=== PATIENT | female | born 1930 | race Asian ===

== ENCOUNTER 2017-09-25 10:59 | Inpatient (IN) | payer OTHER, MEDICAID ==
[2017-09-25] MEDS ORDERED: OSELTAMIVIR PHOSPHATE 75 MG CAP PO ONE (11:12)
[2017-09-25] MEDS ORDERED: IPRATROPIUM/ALBUTEROL 3 ML DEYVIAL IH ONE (11:14)
[2017-09-25] MEDS ORDERED: methylPREDNISolone SOD SUCC 125 MG/2 ML VIAL IVP ONE (11:17)
--- NOTE | 2017-09-25 11:19 | EDPHY ---
H & P Stated Complaint: SOB, cough worsening x 1 week - Personal History Tetanus Vaccine Date: 2012 - Medical/Surgical History Hx Asthma: Yes Hx Chronic Respiratory Disease: No Hx Diabetes: No Hx Cardiac Disease: No Hx Renal Disease: No Hx Cirrhosis: No Hx Alcoholism: No Hx HIV/AIDS: No Hx Splenectomy or Spleen Trauma: No Other PMH: ASTHMA - Social History Smoking Status: Never smoked Time Seen by Provider: 09/25/17 11:10 HPI/ROS: CHIEF COMPLAINT: Influenza HISTORY OF PRESENT ILLNESS: 86-year-old female with history of asthma, arrives via private vehicle after she went see her PCP this morning for complaints of flu-like symptoms since yesterday, positive influenza a test, was noted to be hypoxemic in the low 80s recommended hospital evaluation and likely admission. Language barrier is pleasant. Family members assisting interpretation. No influenza vaccination this season. Patient denies: Chest pain, back pain, syncope, near syncope, urinary abnormality, abdominal pain, headache, nuchal rigidity, pharyngitis symptoms, rash PRIMARY CARE PROVIDER: Dr. Almas Beth REVIEW OF SYSTEMS: A ten point review of systems was performed and is negative with the exception of the items mentioned in the HPI PAST MEDICAL & SURGICAL HISTORY: No influenza vaccination. Asthma. SOCIAL HISTORY: Nonsmoker PHYSICAL EXAM (Prior to examination, patient consented to physical exam, hands were washed and my usual and customary physical exam procedures followed) 1) GENERAL: Well-developed, well-nourished, alert and oriented. Appears nontoxic 2) HEAD: Normocephalic, atraumatic 3) HEENT: Pupils equal, round, reactive to light bilaterally. Sclera anicteric. Nasopharynx, oropharynx, clear, no lesions. No tonsillar enlargement or exudate Ears bilaterally with normal tympanic membranes. 4) NECK: Full range of motion, no meningeal signs. 5) LUNGS: Bilateral rhonchi with retractions noted. 6) HEART: Regular rate and rhythm, no murmur, no heave, no gallop. 7) ABDOMEN: No guarding, no rebound, no focal tenderness, negative McBurney's, negative Ruth's, negative Rovsing's, negative peritoneal sign, 8) MUSCULOSKELETAL: Moving all extremities, no focal areas of tenderness, no obvious trauma. No peripheral edema or discoloration. 9) BACK: No CVA tenderness, no midline vertebral tenderness, no fluctuance, no step-off, no obvious trauma, no visual or palpable abnormality. 10) SKIN: No rash, no petechiae. 11) Psychiatric: Patient is oriented X 3, there is no agitation. DIFFERENTIAL DIAGNOSIS: In no particular include but limited to influenza, pneumonia, pulmonary embolus (Maricarmen Dawn) Constitutional: Initial Vital Signs Temperature (C) 36.7 C 09/25/17 11:06 Heart Rate 73 09/25/17 11:06 Respiratory Rate 20 09/25/17 11:06 Blood Pressure 138/90 H 09/25/17 11:06 O2 Sat (%) 77 L 09/25/17 11:06 O2 Delivery Mode Nasal Cannula O2 (L/minute) 4 Allergies/Adverse Reactions: No Allergies [NKDA] Allergy (Verified 08/31/14 14:58) Home Medications: Medication Instructions Recorded Acetaminophen [Tylenol ES 500 mg 1,000 mg PO DAILY 09/25/17 (*)] Albuterol [Proventil Inhaler HFA 1 - 2 puffs IH Q4H PRN 09/25/17 (*)] Medical Decision Making - Diagnostics Imaging Results: Imaging Impressions Chest X-Ray 09/25/17 11:12 Impression: 1. No pneumonia or effusion. 2. Cardiomegaly and chronic airways disease and bronchiectasis are unchanged. Images reviewed by myself (Maricarmen Dawn) ED Course/Re-evaluation: I discussed this case with Josse Dawn. I took a call from the outpatient physician. This patient has positive for flu A. She is an 86-year-old [place] woman with grandson translating. She has very significant hypoxemia in the mid 70s. She is also new to altitude. We will perform laboratory studies including a septic workup and procalcitonin level. We will admit her to the hospital (Troy Cuello) 11:20 a.m.: Discussed case with secondary supervising physician Dr. Troy Cuello who also evaluated patient. Patient is positive Invanz a, hypoxemic. Plan will be diagnostic studies and plan for admission 11:39 a.m.: Dr. Troy Cuello spoke with hospitalist, admit to Dr. Chaparro 12:50 p.m.: Re-evaluation, lungs are more clear after DuoNeb treatment. (Maricarmen Dawn) - Data Points Laboratory Results: Laboratory Results 09/25/17 11:25 09/25/17 11:25 09/25/17 09/25/17 09/25/17 11:25 11:25 11:25 WBC 8.02 10^3/uL 10^3/uL (3.80-9.50) RBC 4.66 10^6/uL 10^6/uL (4.18-5.33) Hgb 15.0 g/dL g/dL (12.6-16.3) Hct 43.3 % % (38.0-47.0) MCV 92.9 fL fL (81.5-99.8) MCH 32.2 pg pg (27.9-34.1) MCHC 34.6 g/dL g/dL (32.4-36.7) RDW 12.6 % % (11.5-15.2) Plt Count 204 10^3/uL 10^3/uL (150-400) MPV 9.4 fL fL (8.7-11.7) Neut % (Auto) 77.4 % H % (39.3-74.2) Lymph % (Auto) 9.1 % L % (15.0-45.0) Campbell % (Auto) 12.0 % % (4.5-13.0) Eos % (Auto) 0.6 % % (0.6-7.6) Baso % (Auto) 0.4 % % (0.3-1.7) Nucleat RBC Rel Count 0.0 % % (0.0-0.2) Absolute Neuts (auto) 6.21 10^3/uL 10^3/uL (1.70-6.50) Absolute Lymphs (auto) 0.73 10^3/uL L 10^3/uL (1.00-3.00) Absolute Monos (auto) 0.96 10^3/uL H 10^3/uL (0.30-0.80) Absolute Eos (auto) 0.05 10^3/uL 10^3/uL (0.03-0.40) Absolute Basos (auto) 0.03 10^3/uL 10^3/uL (0.02-0.10) Absolute Nucleated RBC 0.00 10^3/uL 10^3/uL (0-0.01) Immature Gran % 0.5 % % (0.0-1.1) Immature Gran # 0.04 10^3/uL 10^3/uL (0.00-0.10) PT 13.4 SEC SEC (12.0-15.0) INR 1.00 (0.83-1.16) APTT 30.3 SEC SEC (23.0-38.0) VBG Lactic Acid Sodium 136 mEq/L mEq/L (135-145) Potassium 4.2 mEq/L mEq/L (3.5-5.2) Chloride 95 mEq/L L mEq/L (97-110) Carbon Dioxide 30 mEq/l mEq/l (22-31) Anion Gap 11 mEq/L mEq/L (8-16) BUN 15 mg/dL mg/dL (7-23) Creatinine 0.8 mg/dL mg/dL (0.6-1.0) Estimated GFR > 60 Glucose 107 mg/dL H mg/dL (70-100) Calcium 8.9 mg/dL mg/dL (8.5-10.4) Total Bilirubin 1.5 mg/dL H mg/dL (0.1-1.4) Procalcitonin 0.09 ng/mL ng/mL (0.02-0.10) 09/25/17 11:25 WBC RBC Hgb Hct MCV MCH MCHC RDW Plt Count MPV Neut % (Auto) Lymph % (Auto) Campbell % (Auto) Eos % (Auto) Baso % (Auto) Nucleat RBC Rel Count Absolute Neuts (auto) Absolute Lymphs (auto) Absolute Monos (auto) Absolute Eos (auto) Absolute Basos (auto) Absolute Nucleated RBC Immature Gran % Immature Gran # PT INR APTT VBG Lactic Acid 1.8 mmol/L mmol/L (0.7-2.1) Sodium Potassium Chloride Carbon Dioxide Anion Gap BUN Creatinine Estimated GFR Glucose Calcium Total Bilirubin Procalcitonin Medications Given: Discontinued Medications Albuterol/Ipratropium (Duoneb) 3 ml IH EDNOW ONE Stop: 09/25/17 11:15 Last Admin: 09/25/17 11:35 Dose: 3 ml Methylprednisolone Sodium Succinate (Solu-Medrol) 125 mg IVP EDNOW ONE Stop: 09/25/17 11:18 Last Admin: 09/25/17 11:35 Dose: 125 mg Oseltamivir Phosphate (Tamiflu Oral Suspension) 75 mg PO EDNOW ONE Stop: 09/25/17 11:46 Last Admin: 09/25/17 12:03 Dose: 75 mg
--- NOTE | 2017-09-25 11:32 | ASMTCMCOM ---
CM Note CM Note Notes: Patient sent to ED from PCP office - positive for Influenza A with hypoxemia. She lives with her son and grandchildren. She is accompanied by her grandchildren who say that she is normally independent. She has an oxygen "machine" at home but they have never seen her use it. Case Management will follow for any discharge needs. Date Signed: 09/25/2017 11:32 AM Electronically Signed By:Berenice Durand RN
[2017-09-25 11:38] LABS: PLATELET COUNT 204 10^3/uL (150-400)
[2017-09-25] MEDS ORDERED: OSELTAMIVIR 6 MG/ML UDSYR PO ONE (11:45)
[2017-09-25 12:05] LABS: PROTIME(PATIENT) 13.4 SEC (12.0-15.0)
[2017-09-25] MEDS ORDERED: ACETAMINOPHEN 325 MG TAB PO PRN (12:54)
[2017-09-25] MEDS ORDERED: ONDANSETRON 4 MG/2 ML VIAL IVP PRN (12:54)
[2017-09-25] MEDS ORDERED: ONDANSETRON DISINTEGRATING 4 MG TAB PO PRN (12:54)
[2017-09-25] MEDS: NS 1,000 ML IV SCH (14:39)
--- NOTE | 2017-09-25 16:48 | PDGENHP ---
History and Physical History and Physical: CC: Worsening shortness of breath HISTORY: This patient developed myalgias arthralgias nausea abdominal ache cough and runny nose last week. Her symptoms persisted though were gradually getting better. This fever initially that was getting better. She was seen a couple days ago at primary care office in [place] and tested positive for influenza A. Over the last 2 days the patient has developed worsening shortness of breath along with some dry cough but no chest ache and she has not had worsening fevers. She is brought by her family into the emergency room with this story. There is no pleuritic pain in the chest no anginal-type symptom no orthopnea no leg swelling or pain. The patient did not have a flu shot this year. She does have a history of some type of airway disease lungs for which she uses an inhaler but the family is not clear with the diagnosis is. She has never been a smoker and there is no family history of lung disease. She has no history of heart disease. She has no history of thromboembolic disease. Per her family she has been eating and drinking reasonably well today, is weaker than usual and having difficulty doing transfers but was able to ambulate independently today. She is perhaps slightly disoriented today they think. They are not aware of any other specific symptoms that she has had. ROS: At the moment she complains mostly of dyspnea and some mild abdominal ache without nausea. 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 She lives with her son here [place] and is accompanied by her son and 2 other relatives. She has never been a smoker never used alcohol I did discuss will with the family in detail the question of resuscitation status. The patient is really not able at this point to comprehend the question full enough to make any understanding or decisions. The family at this point feels that she would probably want full cor attempts and they request that we have full cor orders on the chart at this time MEDICATIONS: Albuterol inhaler as needed PHYSICAL EXAMINATION: Vital Signs: Respiratory rate in the 20s on 5 L of oxygen, pulse blood pressure and temperature is also normal so far Associate Consulting Engineer: Sinus rhythm in the ER Examination: General: alert, reasonably relaxed this time although sounds like he is in more respiratory distress in the ER; she has some mild difficulty understanding questions another part of conversation per her family which sounds like is her baseline Skin: warm, dry, good color, no rash HEENT: normal Neck: no mass or jvd Resps: Mildly labored Lungs: Prolonged expiratory phase of breathing with diffuse expiratory wheeze Heart: regular, no murmur Abdomen: soft, nondistended, nontender, +BS, no mass Upper Extremities: normal Lower Extremities: no edema, warm No Bleeding or bruising Neurologic: normal speech/language, normal equipment operator warehouse, no focal weakness IV site: looks normal LABORATORY DATA: Unremarkable CBC Chemistries only remarkable for minimal elevation of bilirubin which has been seen on past blood test for her with 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 similar The procalcitonin is normal The influenza test done at her primary care physician 2 days ago positive for influenza A RADIOLOGY STUDIES: Chest x-ray done in the ER I reviewed the images, there is some evidence of probable chronic airway disease and what appears to be possibly to be some mild interstitial abnormalities, but no alveolar infiltrate and no effusion and no heart failure ASSESSMENT: -acute hypoxemic respiratory failure -acute influenza a infection -exacerbation of chronic airways disease caused by the influenza; unclear if this is asthma or chronic bronchitis but she has no smoking history -generalized acute weakness due to the above, with gait instability and increased fall risk with fracture risk -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 She certainly needs aggressive treatment for her airways disease as well I did review with the family the finding of high-grade dysplasia on her biopsy of the stomach ulcer years ago and the recommendation had been made at that time for surveillance endoscopy. At this point that he will need to make any decisions but they should talk with the patient as she recovers from this illness and determine between them whether they think they want to engage in surveillance endoscopy or not. Given her age and overall level of function it is reasonable to make a choice to avoid surveillance endoscopies but they understand that there is a possibility that the patient could developed carcinoma. Did not recall it anything about this detail from the 2014 admission PLANS: -inpatient admission to hospital is indicated given the severity of illness the the he which will likely be slowed resolved -Tamiflu was started at reduced dosing for her kidney clearance -scheduled bronchodilators -corticosteroid for her reactive airway disease -fall risk precautions and DVT prophylaxis -physical occupational therapy -full cor per the family wishes -the family as above is advised about the history of before high-grade dysplasia on gastric biopsy and that they should consider over time with a she would wish to have surveillance endoscopy or not, they did not recall this from her 2014 admission I have reviewed the patient's case in detail with Josse Dawn of the ER I have reviewed the patient's past medical records as part of this assessment, including previous hospital admission records and endoscopy reports pathology reports
[2017-09-25] MEDS: IPRATROPIUM/ALBUTEROL 3 ML DEYVIAL IH SCH ×2 (16:58→20:32)
[2017-09-25] MEDS ORDERED: ALBUTEROL 60 PUFFS/8 GM MDI IH PRN (17:27)
[2017-09-25] MEDS: OSELTAMIVIR 6 MG/ML UDSYR PO SCH (17:35)
--- NOTE | 2017-09-25 17:52 | PDMN ---
Medical Necessity Medical necessity: C/M review: est. > 2 MN LOS for eval and TX of acute and persistent - hypoxemic respiratory failure, influenza infection, exacerbation of chronic airways disease, generalized weakness requiring ongoing IV fluids, Duonebs, oral Tamilfu, oral steroid, pulse oximetry, supplemental O2, acute inpt PT/OT, comorbid history of gastric ulcerations in 2013 with high grade dysplasia, duodenal diverticulum, chronic airway disease of the lungs of uncertain nature, hypertension per H/P.
[2017-09-26] MEDS: NS 1,000 ML IV SCH ×2 (03:54→17:33)
[2017-09-26] MEDS: IPRATROPIUM/ALBUTEROL 3 ML DEYVIAL IH SCH ×4 (06:25→21:40)
--- NOTE | 2017-09-26 09:51 | HOSPPROG ---
Hospitalist Progress Note Assessment/Plan: The patient is an 86-year-old female who developed arthralgias, nausea, abdominal pain, and cough. She was seen a few days ago by her primary care doctor and tested positive for influenza a. She started to have worsening shortness of breath. The family brought her in for further evaluation. Today is my 1st encounter with the patient. Chart reviewed. * acute influenza a infection -on Tamiflu (on a lower dose due to kidney function) -continues to complain of body aches * acute hypoxemic respiratory failure -she is on 1 L of oxygen and oxygenating well -chest x-ray shows no no acute abnormalities or infiltrate or effusion. There is some evidence of probable chronic airway disease -on steroids and bronchodilators * generalized acute weakness with gait instability -physical therapy and occupational therapy to work with her * history of high-grade dysplasia noted upon biopsy of a gastric ulcer in 2013 -previous physician spoke with the family to determine if they would want to engage in surveillance endoscopy or not * code status full * plan. The patient will require another midnight stay. She has very poor lung sounds with rhonchi and very tight sounding. She will need treatment with nebulizers. Subjective: Patient is complaining of some body aches but is wondering when she gets to go home Objective: Vital Signs Temp Pulse Resp BP Pulse Ox 37.1 C 72 16 109/58 L 96 09/26/17 07:45 09/26/17 07:45 09/26/17 07:45 09/26/17 07:45 09/26/17 07:45 Laboratory Results 09/26/17 05:00 09/25/17 09/26/17 09/27/17 05:59 05:59 05:59 Intake Total 1090 Balance 1090 PT 13.4 SEC (12.0-15.0) 09/25/17 11:25 INR 1.00 (0.83-1.16) 09/25/17 11:25 - Physical Exam Constitutional: not in pain Eyes: PERRL Ears, Nose, Mouth, Throat: hearing normal Cardiovascular: regular rate and rhythym Respiratory: no respiratory distress, rhonchi, other (Very tight at the base) Gastrointestinal: normoactive bowel sounds Skin: warm Musculoskeletal: generalized weakness Psychiatric: interacting appropriately ICD10 Worksheet Patient Problems: Problems Problem Status Onset Gastric outflow obstruction Acute Nausea Acute
[2017-09-26] MEDS: predniSONE 20 MG TAB PO SCH (09:54)
[2017-09-26] MEDS: ENOXAPARIN 40 MG/0.4 ML SYR SC SCH (09:54)
[2017-09-26] MEDS: OSELTAMIVIR 6 MG/ML UDSYR PO SCH ×2 (09:54→19:40)
[2017-09-27] MEDS: IPRATROPIUM/ALBUTEROL 3 ML DEYVIAL IH SCH ×4 (06:07→20:37)
[2017-09-27] MEDS: predniSONE 20 MG TAB PO SCH (08:59)
[2017-09-27] MEDS: OSELTAMIVIR 6 MG/ML UDSYR PO SCH ×2 (08:59→17:31)
[2017-09-27] MEDS: ENOXAPARIN 40 MG/0.4 ML SYR SC SCH (08:59)
--- NOTE | 2017-09-27 10:59 | HOSPPROG ---
Hospitalist Progress Note Assessment/Plan: The patient is an 86-year-old female who developed arthralgias, nausea, abdominal pain, and cough. She was seen a few days ago by her primary care doctor and tested positive for influenza a. She started to have worsening shortness of breath. The family brought her in for further evaluation. * acute influenza a infection -on Tamiflu (on a lower dose due to kidney function) * acute hypoxemic respiratory failure -she is on 1 L of oxygen and oxygenating well -chest x-ray shows no no acute abnormalities or infiltrate or effusion. There is some evidence of probable chronic airway disease -on steroids and bronchodilators -lung sounds are a bit worse with increased wheezing. Spoke to her granddaughter's her at the bedside the patient also has underlying asthma * generalized acute weakness with gait instability -physical therapy and occupational therapy to work with her * history of high-grade dysplasia noted upon biopsy of a gastric ulcer in 2013 -previous physician spoke with the family to determine if they would want to engage in surveillance endoscopy or not * code status full * plan. Will get a chest x-ray today for further evaluation. Her lung sounds sound worse. Will get a chest x-ray today for follow-up Subjective: Per the family members the pay their grandmother is feeling better today. She is less weak and was able to ambulate in the hallway Objective: Vital Signs Temp Pulse Resp BP Pulse Ox 37.0 C 69 16 124/59 H 96 09/27/17 07:16 09/27/17 07:16 09/27/17 07:16 09/27/17 07:16 09/27/17 07:16 Laboratory Results 09/26/17 05:00 09/26/17 09/27/17 09/28/17 05:59 05:59 05:59 Intake Total 1090 900 Balance 1090 900 PT 13.4 SEC (12.0-15.0) 09/25/17 11:25 INR 1.00 (0.83-1.16) 09/25/17 11:25 - Physical Exam Constitutional: no apparent distress, not in pain Ears, Nose, Mouth, Throat: ears appear normal Cardiovascular: no murmur, rub, or gallop Respiratory: no respiratory distress, expiratory wheeze, rhonchi Gastrointestinal: normoactive bowel sounds, soft, non-tender abdomen Skin: warm Musculoskeletal: generalized weakness Psychiatric: interacting appropriately, not anxious ICD10 Worksheet Patient Problems: Problems Problem Status Onset Gastric outflow obstruction Acute Nausea Acute
[2017-09-28] MEDS: IPRATROPIUM/ALBUTEROL 3 ML DEYVIAL IH SCH ×2 (06:15→11:12)
[2017-09-28] MEDS: OSELTAMIVIR 6 MG/ML UDSYR PO SCH (09:03)
[2017-09-28] MEDS: predniSONE 20 MG TAB PO SCH (09:03)
[2017-09-28] MEDS: ENOXAPARIN 40 MG/0.4 ML SYR SC SCH (09:03)
[2017-09-28 10:59] VITALS: BP 133/67; TEMP 98.6
--- NOTE | 2017-09-28 14:13 | HOSPPROG ---
Hospitalist Progress Note Assessment/Plan: The patient is an 86-year-old female who developed arthralgias, nausea, abdominal pain, and cough. She was seen a few days ago by her primary care doctor and tested positive for influenza a. She started to have worsening shortness of breath. The family brought her in for further evaluation. * acute influenza a infection -on Tamiflu (on a lower dose due to kidney function) * acute hypoxemic respiratory failure -she is on 1 L of oxygen and oxygenating well -chest x-ray shows no no acute abnormalities or infiltrate or effusion. Repeat chest x-ray shows nothing acute -on steroids and bronchodilators -continues to require 1 L of oxygen, will discharge her home on this * generalized acute weakness with gait instability -physical therapy and occupational therapy to work with her * history of high-grade dysplasia noted upon biopsy of a gastric ulcer in 2013 -previous physician spoke with the family to determine if they would want to engage in surveillance endoscopy or not * code status full * plan. Will discharge her home today. I suspect she will get better in her own home environment. She is unable to sleep here due to being uncomfortable in the bed. She has many supportive children her willing to keep a close eye on her. Will order home O2 and continue her Tamiflu Subjective: patient is feeling better and wants to go home Objective: Vital Signs Temp Pulse Resp BP Pulse Ox 37.0 C 73 18 133/67 H 97 09/28/17 10:58 09/28/17 10:58 09/28/17 10:58 09/28/17 10:58 09/28/17 10:58 Laboratory Results 09/28/17 04:49 09/27/17 09/28/17 09/29/17 05:59 05:59 05:59 Intake Total 900 Balance 900 PT 13.4 SEC (12.0-15.0) 09/25/17 11:25 INR 1.00 (0.83-1.16) 09/25/17 11:25 - Physical Exam Constitutional: not in pain Eyes: PERRL Ears, Nose, Mouth, Throat: hearing normal Cardiovascular: regular rate and rhythym Respiratory: no respiratory distress, expiratory wheeze, rhonchi (scattered, bit less than yesterday) Skin: warm Musculoskeletal: generalized weakness Neurologic: AAOx3 Psychiatric: interacting appropriately ICD10 Worksheet Patient Problems: Problems Problem Status Onset Gastric outflow obstruction Acute Nausea Acute
--- NOTE | 2017-09-28 14:15 | PDHOMEO2F ---
Home Oxygen Face to Face Home Orders: I certify that a physician or a nurse practitioner or physician's bilingual sales assistant has had a [id number] encounter with this patient on the date of this order due to the diagnosis listed, which relates to the primary reason the patient requires home oxygen. Alternative treatments have been tried, or considered, and deemed ineffective. It is anticipated that supplemental oxygen will result in improvement with treatment. Home oxygen qualifying diagnosis: influenza Home oxygen secondary diagnosis: asthma SpO2 on room air (%): 84 Frequency of home oxygen needed: continuous Home oxygen liters per minute: 1 Home oxygen delivery device: nasal cannula Concentrator: Yes E-tanks for mobility and back up: Yes If ordering portable O2, is the patient mobile in the home?: Yes I certify that, based on these findings, the home oxygen is medically necessary for this patient for the following length of time. Length of time home oxygen needed: 99 years
[2017-09-28 14:44] VITALS: PULSE 64; RESP 24; O2SAT 93
[2017-09-28] MEDS ORDERED: PNEUMOC 13-VAL CONJ-DIP CRM/PF 0.5 ML SYR IM ONE (15:53)
[2017-09-28] MEDS ORDERED: FLU VACC QS 2017-18 (3YR+)/PF 0.5 ML SYR (FLUARIX QUAD) IM ONE (15:53)
--- NOTE | 2017-09-28 21:19 | GDS ---
[f rep st] DISCHARGE SUMMARY DISCHARGE DIAGNOSES: 1. Influenza A. 2. Acute hypoxemic respiratory with underlying asthma. 3. Generalized acute weakness and gait instability. 4. 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 HISTORY OF PRESENT ILLNESS: Briefly, the patient is an 86-year-old female who developed arthralgia, nausea, abdominal pain, cough. She was seen by her primary care and tested for influenza A. She sta rted having worsening of shortness of breath. The family brought her in here for further evaluation. She had a chest x-ray performed that showed no acute abnormalities, infiltrate, or effusion. I angel pect her symptoms have worsened due to underlying asthma. She has not been sleeping well in the hosp ital. She has a very supportive family who will take care of her. She will be discharged home, and further follow up with her primary care provider. HOSPITAL COURSE: 1. Acute influenza A infection. She is on Tamiflu. She will receive 3 more doses. Her arthralgia, nausea, and abdominal pain have all resolved. She continues to have a cough. 2. Acute hypoxemic respiratory failure. She is on steroids. Will wean these off. She will require oxygen at home. This has been ordered. 3. Generalized acute weakness and gait instability. Physical therapy and occupational therapy have worked with her. The family has declined for home care to evaluate her. 4. 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 The previous doctor spok e with the family if they would want to engage any type of surveillance, endoscopy or not. I have al so reviewed that with the family today and yesterday. They will further discuss with her primary car e provider. DISCHARGE CONDITION: Stable. Blood pressure is 133/67, O2 sats on 1 L 97%, respiratory rate is 18, pulse is 73, temperature is 37 degrees Celsius. MEDICATIONS AT DISCHARGE: Please see the EMR. DISCHARGE INSTRUCTIONS: 1. To follow up with her primary care provider and get a repeat chest x-ray. 2. If she develops fever, chills, chest pain, shortness of breath, return to the ER. Greater than 30 minutes discharging and coordinating care. /[id number]/MODL
== END 2017-09-28 16:13 | disposition home or self-care (01) | DRG 193 ==
LOC: OBSVTOIN 12:54 → F3E 14:16
PROVIDERS: ADMIT Internal Medicine; ATTEND Internal Medicine
DX: J10.1 Influenza due to other identified influenza virus with other respiratory manifestations (principal); J96.01 Acute respiratory failure with hypoxia; J45.909 Unspecified asthma, uncomplicated; R53.1 Weakness; Z23 Encounter for immunization
CPT/HCPCS: 97161-GP; G0008; G0009; G8978-GP-CJ; G8979-GP-CI; J1650; J2930; J7512

== ENCOUNTER → 2017-10-09 | Outpatient (CLI) | payer OTHER, MEDICAID | LOC: CIMAGING 15:33 | PROVIDERS: ATTEND Family Medicine | DX: J18.1 Lobar pneumonia, unspecified organism (principal); R91.8 Other nonspecific abnormal finding of lung field; I51.7 Cardiomegaly | CPT/HCPCS: 71046-PO ==

== ENCOUNTER → 2017-10-12 | Outpatient (CLI) | payer OTHER, MEDICAID ==
[~2017-10-12] MED LIST: IOPAMIDOL (ISOVUE-300) 100 ML BTL ONE
== END ==
LOC: FIMAGING 11:33
PROVIDERS: ATTEND Family Medicine
DX: I26.99 Other pulmonary embolism without acute cor pulmonale (principal); R91.1 Solitary pulmonary nodule; R91.8 Other nonspecific abnormal finding of lung field; Q40.3 Congenital malformation of stomach, unspecified
CPT/HCPCS: 71260; 74160; Q9967

== ENCOUNTER → 2017-11-27 | Outpatient (CLI) | payer OTHER, MEDICAID | LOC: CIMAGING 16:18 | PROVIDERS: ATTEND Family Medicine | DX: I50.9 Heart failure, unspecified (principal) | CPT/HCPCS: 71046-PO ==

== ENCOUNTER 2017-11-30 17:29 | Inpatient (IN) | payer OTHER, MEDICAID ==
--- NOTE | 2017-11-30 17:58 | CPEKG ---
Heart Rate: 74 RR Interval: 811 QRSD Interval: 76 QT Interval: 384 QTC Interval: 426 QRS Walton: 52 T Wave Walton: 60 EKG Severity - ABNORMAL ECG - EKG Impression: ATRIAL FIBRILLATION, V-RATE 61-98 Electronically Signed By: Troy Cuello 30-Nov-2017 21:33:54
--- NOTE | 2017-11-30 18:18 | EDPHY ---
H & P Stated Complaint: referred to ED for high BNP Time Seen by Provider: 11/30/17 18:18 - Personal History Current Tetanus/Diphtheria Vaccine: Yes Current Tetanus Diphtheria and Acellular Pertussis (TDAP): Yes Tetanus Vaccine Date: 2012 - Medical/Surgical History Hx Asthma: Yes Hx Chronic Respiratory Disease: No Hx Diabetes: No Hx Cardiac Disease: No Hx Renal Disease: No Hx Cirrhosis: No Hx Alcoholism: No Hx HIV/AIDS: No Hx Splenectomy or Spleen Trauma: No Other PMH: ASTHMA - Social History Smoking Status: Never smoked Constitutional: Initial Vital Signs Temperature (C) 36.6 C 11/30/17 17:43 Heart Rate 85 11/30/17 17:43 Respiratory Rate 20 11/30/17 17:43 Blood Pressure 147/87 H 11/30/17 17:43 O2 Sat (%) 92 11/30/17 17:43 O2 Delivery Mode Room Air O2 (L/minute) 2 Allergies/Adverse Reactions: No Allergies [NKDA] Allergy (Verified 11/30/17 17:41) Home Medications: Medication Instructions Recorded Albuterol [Proventil Inhaler HFA 1 - 2 puffs IH Q4H PRN 09/25/17 (*)] Azithromycin 250 mg PO DAILY 11/30/17 Warfarin Sodium [Coumadin 1MG (*)] 0.5 mg PO MOWEFR@1800 11/30/17 Warfarin Sodium [Coumadin 1MG (*)] 1 mg PO SUTUTHSA@1800 11/30/17 Medical Decision Making - Diagnostics Imaging Results: Imaging Impressions Chest X-Ray 11/30/17 18:39 Impression: 1. Findings consistent with congestive heart failure superimposed upon underlying airways disease. 2. Marked aortic ectasia consistent with history of arterial hypertension. ED Course/Re-evaluation: CHIEF COMPLAINT: Sent in by PCP HISTORY OF PRESENT ILLNESS: 87-year-old [facility] woman who has her granddaughter at bedside and translating. She has been having some difficulty with shortness of breath especially while laying flat. She saw her primary care doctor who thought she may have a pneumonia which she had an late September. The chest x- ray was unremarkable for pneumonia however the BNP came back over a 8000. This patient has a new diagnosis of congestive heart failure according to the granddaughter. She was sent in to have her new onset CHF diagnosed. REVIEW OF SYSTEMS: A 10 point review of systems was performed and is negative with the exception of the elements mentioned in the history of present illness. Obtained via the granddaughter PHYSICAL EXAM: HR, BP, O2 Sat, RR. Temp noted General Appearance: Alert, well hydrated, appropriate, and non-toxic appearing. Head: Atraumatic without scalp tenderness or obvious injury Eyes: Pupils equal, round, reactive to light and accommodation, EOMI, no trauma , no injection. Ears: Clear bilaterally, no perforation, normal landmarks Nose: Atraumatic, no rhinorrhea, clear. Throat: There is no erythema or exudates, no lesions, normal tonsils, mucus membranes moist. Neck: Supple, 2+ carotid upstroke, nontender, no lymphadenopathy. Respiratory: Mild respiratory distress but better on 2 and half to 3 L of oxygen. Rales at the bases with some mild end-expiratory wheezes Cardiovascular: Regular rate and rhythm, no murmurs, rubs, or gallops. Bilateral carotid, radial, dorsalis pedis, and posterior tibial pulses intact. Good capillary refill all extremities. Gastrointestinal: Abdomen is soft, nontender, non-distended, no masses, no rebound, no guarding, no peritoneal signs. Musculoskeletal: Normal active ROM of all extremities, atraumatic. Neurological: Alert, appropriate, and interactive. The patient has normal DTRs and non-focal cranial nerves, motor, sensory, and cerebellar exam. Skin: No rashes, good turgor, no nodules on palpation. Past medical history: Prior history of pneumonia no prior cardiac history that is known Past surgical history: Noncontributory Family history: Noncontributory Social history: , not employed, [place] has never smoked tobacco, does not use alcohol DIAGNOSTICS/PROCEDURES/CRITICAL CARE TIME: Study: PA and Lateral Chest X-ray Indication: Trauma, Chest pain Results: After viewing the images myself on the PACS system. My interpretation of the images is: congestive heart failure, cardiomegaly. The radiologist interpretation is pending at the time of this dictation. I have discussed the above x-rays with the radiologist. The 12 lead EKG was interpreted by myself. See hard copy and/or "tracemaster" electronic copy for interpretation. Atrial fibrillation, ventricular rate 70. DIFFERENTIAL DIAGNOSIS: The differential diagnosis for the patient's shortness of breath and hypoxemia included but was not limited to pneumonia, myocardial infarction, acute mountain sickness, high altitude pulmonary edema, congestive heart failure, and pulmonary embolus. MEDICAL DECISION MAKING: This patient has new onset congestive heart failure. That is the cause for her recent cough and paroxysmal nocturnal dyspnea. She also has some mild peripheral edema. According to her granddaughter she has never been diagnosed with this. At this point I am awaiting her kidney function. We will admit her to the hospitalist for treatment. Her blood pressure is well controlled. Her heart rates well controlled. EKG shows atrial fibrillation. BNP elevated at 7800. Creatinine 0.7. 19:[address] Spoke with [address] service. Dr[address] Murray accepts admission to PCU for new onset CHF. 19:[address] Mitchell, radiologist. Chest x-ray shows evidence of congestive heart failure, cardiomegaly. - Data Points Laboratory Results: Laboratory Results 11/30/17 18:10 11/30/17 18:10 11/30/17 11/30/17 18:10 18:10 WBC 5.09 10^3/uL 10^3/uL (3.80-9.50) RBC 4.06 10^6/uL L 10^6/uL (4.18-5.33) Hgb 12.6 g/dL g/dL (12.6-16.3) Hct 39.0 % % (38.0-47.0) MCV 96.1 fL fL (81.5-99.8) MCH 31.0 pg pg (27.9-34.1) MCHC 32.3 g/dL L g/dL (32.4-36.7) RDW 14.3 % % (11.5-15.2) Plt Count 198 10^3/uL 10^3/uL (150-400) MPV 9.7 fL fL (8.7-11.7) Neut % (Auto) 74.6 % H % (39.3-74.2) Lymph % (Auto) 9.2 % L % (15.0-45.0) Morgan % (Auto) 11.4 % % (4.5-13.0) Eos % (Auto) 2.8 % % (0.6-7.6) Baso % (Auto) 1.4 % % (0.3-1.7) Nucleat RBC Rel Count 0.0 % % (0.0-0.2) Absolute Neuts (auto) 3.80 10^3/uL 10^3/uL (1.70-6.50) Absolute Lymphs (auto) 0.47 10^3/uL L 10^3/uL (1.00-3.00) Absolute Monos (auto) 0.58 10^3/uL 10^3/uL (0.30-0.80) Absolute Eos (auto) 0.14 10^3/uL 10^3/uL (0.03-0.40) Absolute Basos (auto) 0.07 10^3/uL 10^3/uL (0.02-0.10) Absolute Nucleated RBC 0.00 10^3/uL 10^3/uL (0-0.01) Immature Gran % 0.6 % % (0.0-1.1) Immature Gran # 0.03 10^3/uL 10^3/uL (0.00-0.10) Sodium 133 mEq/L L mEq/L (135-145) Potassium 4.9 mEq/L mEq/L (3.5-5.2) Chloride 99 mEq/L mEq/L (97-110) Carbon Dioxide 24 mEq/l mEq/l (22-31) Anion Gap 10 mEq/L mEq/L (8-16) BUN 12 mg/dL mg/dL (7-23) Creatinine 0.7 mg/dL mg/dL (0.6-1.0) Estimated GFR > 60 Glucose 168 mg/dL H mg/dL (70-100) Calcium 8.2 mg/dL L mg/dL (8.5-10.4) Total Bilirubin 1.5 mg/dL H mg/dL (0.1-1.4) AST 37 IU/L IU/L (14-46) ALT 25 IU/L IU/L (9-52) Alkaline Phosphatase 45 IU/L IU/L (38-126) NT-Pro-B Natriuret Pep 7800 pg/mL H pg/mL (0-450) Total Protein 6.6 g/dL g/dL (6.3-8.2) Albumin 3.6 g/dL g/dL (3.5-5.0) Specimen Hemolysis 115 Departure - Departure Disposition: [facility] Acute Clinical Impression: Congestive heart failure Qualifiers: Heart failure type: unspecified Heart failure chronicity: acute Qualified Code( s): I50.9 - Heart failure, unspecified Condition: Fair Report Scribed for: Troy Cuello Report Scribed by: Annette Song Date of Report: 11/30/17 Time of Report: 21:23
[2017-11-30 18:31] LABS: PLATELET COUNT 198 10^3/uL (150-400)
--- NOTE | 2017-11-30 19:23 | CPEKG ---
Heart Rate: 70 RR Interval: 857 QRSD Interval: 88 QT Interval: 412 QTC Interval: 445 QRS [place]err[place]: 75 T Wave [place]: 62 EKG Severity - ABNORMAL ECG - EKG Impression: ATRIAL FIBRILLATION, V-RATE 65-73 Electronically Signed By: Troy Cuello 30-Nov-2017 21:33:54
[2017-11-30] MEDS ORDERED: ACETAMINOPHEN 325 MG TAB PO PRN (22:16)
[2017-11-30] MEDS ORDERED: ONDANSETRON 4 MG/2 ML VIAL IVP PRN (22:16)
[2017-11-30] MEDS ORDERED: ONDANSETRON DISINTEGRATING 4 MG TAB PO PRN (22:16)
[2017-11-30] MEDS ORDERED: ALBUTEROL 3 ML DEYVIAL IH PRN (22:39)
[2017-11-30] MEDS ORDERED: FUROSEMIDE 20 MG/2 ML VIAL IVP ONE (22:43)
--- NOTE | 2017-11-30 23:28 | PDGENHP ---
History and Physical - Chief Complaint Shortness of breath - History of Present Illness 87 yo F w/ asthma and AF presents from clinic with shortness of breath. Patient has been suffering from URI symptoms for about one week. She was started on Azithromycin a few days ago. She went to see her PCP today who did blood work and a CXR. Based on the results of these patient was sent to the ED for evaluation. Work-up in the ED was notable for wheezing, pulmonary edema, mild hypoxia, and elevated BNP. History Information - Allergies/Home Medication List Allergies/Adverse Reactions: No Allergies [NKDA] Allergy (Verified 11/30/17 17:41) Home Medications: Albuterol [Proventil Inhaler HFA (*)] 1 - 2 puffs IH Q4H PRN 09/25/17 [Last Taken Unknown] Azithromycin 250 mg PO DAILY 11/30/17 [Last Taken 11/29/17] Warfarin Sodium [Coumadin 1MG (*)] 0.5 mg PO MOWEFR@1800 11/30/17 [Last Taken ] Warfarin Sodium [Coumadin 1MG (*)] 1 mg PO SUTUTHSA@1800 11/30/17 [Last Taken ] I have personally reviewed and updated: family history, medical history - Past Medical History atrial fibrillation, asthma - Family History Additional family history: Denies family history of cardiac disease - Social History Smoking Status: Never smoked Review of Systems Review of Systems: ROS: 10pt was reviewed & negative except for what was stated in HPI & below Physical Exam Physical Exam: Temp Pulse Resp BP Pulse Ox 36.9 C 78 17 126/88 H 100 11/30/17 23:12 11/30/17 23:12 11/30/17 23:12 11/30/17 23:12 11/30/17 23:12 O2 (L/minute) 2 Constitutional: no apparent distress, not in pain Eyes: PERRL, EOMI Ears, Nose, Mouth, Throat: moist mucous membranes, no oral mucosal ulcers Cardiovascular: no murmur, rub, or gallop, irregularly irregular, No edema Respiratory: no respiratory distress, expiratory wheeze, rhonchi Gastrointestinal: normoactive bowel sounds, soft, non-tender abdomen Skin: warm, normal color Musculoskeletal: full muscle strength, no muscle tenderness Neurologic: AAOx3, CN II-XII Intact Psychiatric: interacting appropriately, not anxious Lab Data & Imaging Review 11/30/17 18:10 11/30/17 18:10 WBC 5.09 10^3/uL (3.80-9.50) 11/30/17 18:10 RBC 4.06 10^6/uL (4.18-5.33) L 11/30/17 18:10 Hgb 12.6 g/dL (12.6-16.3) 11/30/17 18:10 Hct 39.0 % (38.0-47.0) 11/30/17 18:10 MCV 96.1 fL (81.5-99.8) 11/30/17 18:10 MCH 31.0 pg (27.9-34.1) 11/30/17 18:10 MCHC 32.3 g/dL (32.4-36.7) L 11/30/17 18:10 RDW 14.3 % (11.5-15.2) 11/30/17 18:10 Plt Count 198 10^3/uL (150-400) 11/30/17 18:10 MPV 9.7 fL (8.7-11.7) 11/30/17 18:10 Neut % (Auto) 74.6 % (39.3-74.2) H 11/30/17 18:10 Lymph % (Auto) 9.2 % (15.0-45.0) L 11/30/17 18:10 Morris % (Auto) 11.4 % (4.5-13.0) 11/30/17 18:10 Eos % (Auto) 2.8 % (0.6-7.6) 11/30/17 18:10 Baso % (Auto) 1.4 % (0.3-1.7) 11/30/17 18:10 Nucleat RBC Rel Count 0.0 % (0.0-0.2) 11/30/17 18:10 Absolute Neuts (auto) 3.80 10^3/uL (1.70-6.50) 11/30/17 18:10 Absolute Lymphs (auto) 0.47 10^3/uL (1.00-3.00) L 11/30/17 18:10 Absolute Monos (auto) 0.58 10^3/uL (0.30-0.80) 11/30/17 18:10 Absolute Eos (auto) 0.14 10^3/uL (0.03-0.40) 11/30/17 18:10 Absolute Basos (auto) 0.07 10^3/uL (0.02-0.10) 11/30/17 18:10 Absolute Nucleated RBC 0.00 10^3/uL (0-0.01) 11/30/17 18:10 Immature Gran % 0.6 % (0.0-1.1) 11/30/17 18:10 Immature Gran # 0.03 10^3/uL (0.00-0.10) 11/30/17 18:10 Sodium 133 mEq/L (135-145) L 11/30/17 18:10 Potassium 4.9 mEq/L (3.5-5.2) 11/30/17 18:10 Chloride 99 mEq/L (97-110) 11/30/17 18:10 Carbon Dioxide 24 mEq/l (22-31) 11/30/17 18:10 Anion Gap 10 mEq/L (8-16) 11/30/17 18:10 BUN 12 mg/dL (7-23) 11/30/17 18:10 Creatinine 0.7 mg/dL (0.6-1.0) 11/30/17 18:10 Estimated GFR > 60 11/30/17 18:10 Glucose 168 mg/dL (70-100) H 11/30/17 18:10 Calcium 8.2 mg/dL (8.5-10.4) L 11/30/17 18:10 Total Bilirubin 1.5 mg/dL (0.1-1.4) H 11/30/17 18:10 AST 37 IU/L (14-46) 11/30/17 18:10 ALT 25 IU/L (9-52) 11/30/17 18:10 Alkaline Phosphatase 45 IU/L (38-126) 11/30/17 18:10 NT-Pro-B Natriuret Pep 7800 pg/mL (0-450) H 11/30/17 18:10 Total Protein 6.6 g/dL (6.3-8.2) 11/30/17 18:10 Albumin 3.6 g/dL (3.5-5.0) 11/30/17 18:10 Specimen Hemolysis 115 11/30/17 18:10 Nasal Influenza A PCR NEGATIVE FOR FLU A (NEGATIVE) 11/30/17 20:00 Nasal Influenza B PCR NEGATIVE FOR FLU B (NEGATIVE) 11/30/17 20:00 Imaging Review: Imaging Impressions Chest X-Ray 11/30/17 18:39 Impression: 1. Findings consistent with congestive heart failure superimposed upon underlying airways disease. 2. Marked aortic ectasia consistent with history of arterial hypertension. Visualized and Interpreted EKG results: Yes EKG Interpretation: Positive for: other (AF, HR 74, no signs of ischemia) Assessment & Plan Assessment: 87 yo F w/ asthma and AF presents with SOB from combination of asthma exacerbation and suspected new CHF. Plan: 1. Asthma with acute exacerbation - Suspect viral URI trigger noting symptoms for 1 week (cough, congestion, sore throat). She was started on azithromycin by PCP a few days prior to admission. She is diffusely wheezing on my exam but only mildly hypoxic and not in respiratory distress. - Prednisone 40 mg qD - Respiratory PCR, procalcitonin - Albuterol PRN - Will observe off of antibiotics for now noting 0/4 SIRS criteria present 2. Suspected new CHF - Suspected on the basis of pulmonary edema and elevated BNP. This appears mild, likely diastolic dysfunction. Decompensation triggered by viral infection and asthma exacerbation. - Furosemide 20 mg IV x1 - Evaluate in the morning for additional dosing, I will not write for standing order as of now as she appears close to euvolemia - TTE for further evaluation 3. AF - On warfarin for AC; family reports INR of 3.3 in clinic today. Rate controlled without medication currently. - Monitor daily INR, continue warfarin 4. AHRF - Mild, only requiring 2 L/min currently. As a result of asthma exacerbation and CHF. Diet - Regular Code - Full per discussion with family Ppx - warfarin Dispo - Admit under observation status
[2017-12-01 04:32] LABS: PLATELET COUNT 218 10^3/uL (150-400)
[2017-12-01 04:41] LABS: INR 2.53 (0.83-1.16); PROTIME(PATIENT) 27.2 SEC (12.0-15.0)
[2017-12-01] MEDS ORDERED: ALBUTEROL 60 PUFFS/8 GM MDI IH PRN (08:48)
[2017-12-01] MEDS: predniSONE 20 MG TAB PO SCH (09:34)
[2017-12-01] MEDS: IPRATROPIUM/ALBUTEROL 3 ML DEYVIAL IH SCH ×4 (09:48→22:59)
--- NOTE | 2017-12-01 11:13 | ECHO ---
[email or web address] [address] [address] Main: [phone] Fax: Transthoracic Echocardiogram Name: JORDYN COLINDRES MR#: [id number] Study Date: 12/01/2017 Study Time: 10:10 AM Date of : 1930 Age: 87 year(s) Height: ( ) Weight: ( ) BSA: Gender: Female Examination: Echo Indication: new CHF Image Quality: Contrast: Requested by: Lavelle Suero BP: 123 mmHg/66 mmHg Heart Rate: Rhythm: Indication: new CHF Procedure Staff Cotton Stomper: Sammi Walker RDCS Reading Physician: Hansel Lyman MD Requesting Provider: Conclusions: No pericardial effusion. Concentric left ventricular hypertrophy with preserved LV systolic function. Ejection fraction 70 75%. Biatrial enlargement. Calcification of the mitral valve annulus. Calcification of the aortic valve cusps. Mild aortic regurgitation. Moderate tricuspid regurgitation with right ventricular systolic pressure 47 mm of mercury. Exam consistent with diastolic dysfunction. Measurements: Chambers Valvular Assessment AV/MV Valvular Assessment TV/PV Normal Normal Normal Name Value Range Name Value Range Name Value Range Ao Palak (MM): 3.8 cm (2.2 cm-3.7 AV meanP mmHg ( - ) TR Vmax: 3.24 mm/s ( - ) cm) MV E Vmax: 0.90 m/s ( - ) TR PGmax: 42 mmHg ( - ) IVSd (2D): 1.2 cm (0.6 cm-1.1 MV A Vmax: 0.22 m/s ( - ) syst. PAP: 47 mmHg ( - ) cm) MV E/A: 4.09 ( - ) LVDd (2D): 4.4 cm (3.9 cm-5.3 cm) LVPWd (2D): 1.4 cm ( - ) LVEF (MOD4): 68 % (>=55 %) EF Range: 70-75 % Continued Measurements: Chambers Valvular Assessment AV/MV Valvular Assessment TV/PV Name Value Name Value Name Value LADs: 4.6 cm MV E/E' Septal: 20.90 CVP (est.): 5 mmHg LADs Lon.0 cm MV E/E' Lateral: 22.50 LA Area: 24.6 cm2 Additional Vessels Patient: JORDYN COLINDRES Study Date: 12/01/2017 Page 1 of 2 10:10 AM Name Value Ao Ascendin.5 cm Findings: Left Ventricle: Normal size left ventricle. Mild concentric LV hypertrophy. Normal global systolic LV function. The ejection fraction is estimated to be 70-75 %. No regional wall motion abnormality. Diastolic dysfunction is present. . Right Ventricle: Normal size right ventricle. Left Atrium: The left atrium is moderately to severely dilated. Right Atrium: The right atrium is moderately dilated. Mitral Valve: Moderate mitral annular calcification. Aortic Valve: Mild aortic cusp calcification is noted. Mild aortic valve regurgitation is present. Tricuspid Valve: The tricuspid valve is normal in appearance and function. Moderate tricuspid regurgitation is present. The pulmonary artery pressure is mildly increased. RVSP is 47mmHG. . Pulmonic Valve: The pulmonic valve is normal in appearance and function. Aorta: The aorta is normal. Pericardium: No pericardial effusion. (No Signature Object) Patient: JORDYN COLINDRES Study Date: 12/01/2017 Page 2 of 2 10:10 AM [id number]
--- NOTE | 2017-12-01 12:00 | ASMTCASEMG ---
Living Arrangements What is your living Answers: Alone arrangement? Who do you live with? Type Of Residence What kind of residence do Answers: House you live in? Discharge Plan Comments Coordination Status Comments Notes: Pts case discussed in morning rounds. Pt is a 87 y/o female admitted for new onset of CHF and hypoxemia. PT has been ordered and awaiting recommendations. Needs are TBD at this time. CM to follow. Plan: TBD Date Signed: 12/01/2017 11:59 AM Electronically Signed By:DANIELLE Cabrera
--- NOTE | 2017-12-01 14:30 | HOSPPROG ---
Hospitalist Progress Note Assessment/Plan: Assessment: 87-year-old female presents with acute asthma exacerbation in the setting of possible acute diastolic congestive heart failure Plan: 1. Acute asthma exacerbation. Evidenced by diffuse expiratory wheezes bilaterally, symptomatic shortness of breath, reported prior history of asthma -I dealt into the patient's past history of pulmonary processes with her [id number], and is unclear as to how the patient's diagnosis of asthma was reached in the past, other than it was handed down as a diagnosis and there is no clear pulmonary function test -she she currently has acutely reactive airways consistent with asthma and we will treated as an asthma or possible COPD exacerbation and recommended the patient have formal pulmonary function test performed as an outpatient after her acute process resolves -she has been placed on scheduled duo nebs, continue with p.r.n. Albuterol -day 1 of 5 of prednisone -she will continue her course of azithromycin as prescribed in the outpatient setting, to reduce duration of symptoms -she will continue on supplemental oxygen and we will reassess for home needs prior to discharge 2. Possible acute diastolic congestive heart failure exacerbation. New problem this provider, further workup indicated. Evidenced by interstitial infiltrates and edema on chest x-ray with a BNP of 7800, possibly secondary to either uncontrolled atrial fibrillation with reduced cardiac output or acute illness -get echocardiogram to evaluate ejection fraction -given IV Lasix, monitor strict I&O and weight -hold on additional oral Lasix dosing until the above information has been obtained -monitor serum potassium and sodium levels 3. Acute hyponatremia. Most likely secondary to acute illness and has improved with IV diuresis, continue to monitor 4. Permanent atrial fibrillation. Present on EKG, personally interpreted, continue monitor on telemetry for rapid ventricular response which may be contributing to above or response of the above -will discuss systemic anticoagulation with patient and family during this hospitalization -currently not requiring any marvin blocking agents Diet. Regular Prophylaxis. High risk patient, Lovenox for Code. Full Disposition. Anticipated discharge uncertain this time, upgraded to inpatient admission status reasonable medical necessity and anticipation that her length stay will be greater than 48 hr for treatment of acute asthma exacerbation which has yet to clinically resolve, with ongoing expiratory wheezes requiring scheduled duo nebulizer treatments. Subjective: Patient reports some ongoing shortness of breath when she ambulates , improving from day prior, experiencing polyuria Objective: Vital Signs Temp Pulse Resp BP Pulse Ox 36.8 C 81 18 123/66 H 94 12/01/17 09:15 12/01/17 11:12 12/01/17 11:12 12/01/17 09:15 12/01/17 11:12 Microbiology 12/01/17 09:30 Respiratory Panel (PCR) - Final Nasal, Sinus - Swab No Organism Detected Laboratory Results 12/01/17 03:55 12/01/17 03:55 11/30/17 12/01/17 12/02/17 05:59 05:59 05:59 Intake Total 300 Output Total 400 400 Balance -100 -400 PT 27.2 SEC (12.0-15.0) H 12/01/17 03:55 INR 2.53 (0.83-1.16) H 12/01/17 03:55 - Physical Exam Constitutional: no apparent distress, not in pain, No obese, No uncomfortable Cardiovascular: systolic murmur (1/6 at the sternum), irregularly irregular, No tachycardia, No edema Respiratory: expiratory wheeze (Bilaterally), No reduced air movement, No inspiratory crackles, No bronchial breath sounds, No respiratory distress Gastrointestinal: normoactive bowel sounds, soft, non-tender abdomen, no palpable masses, No distension Neurologic: No facial droop Psychiatric: interacting appropriately, not anxious, not encephalopathic, thought process linear ICD10 Worksheet Patient Problems: Problems Problem Status Onset Gastric outflow obstruction Acute Nausea Acute Congestive heart failure Acute
[2017-12-01] MEDS: AZITHROMYCIN 250 MG TAB PO SCH (14:48)
--- NOTE | 2017-12-01 15:33 | PDMN ---
Medical Necessity Medical necessity: change to IP; los>2mn for acute asthma exacerbation, possible acute diastolic CHF exacerbation, hyponatremia, permanent afib; requires scheduled nebs, tele monitoring, and supplemental O2; per order and progress note 12/01/17
[2017-12-01] MEDS ORDERED: WARFARIN SODIUM 1 MG TAB PO SCH (18:00)
[2017-12-02 04:52] LABS: INR 2.29 (0.83-1.16); PROTIME(PATIENT) 25.2 SEC (12.0-15.0)
[2017-12-02] MEDS: IPRATROPIUM/ALBUTEROL 3 ML DEYVIAL IH SCH ×2 (05:41→11:42)
[2017-12-02 08:07] VITALS: BP 120/69; TEMP 98.5
[2017-12-02] MEDS: predniSONE 20 MG TAB PO SCH (09:00)
[2017-12-02] MEDS: AZITHROMYCIN 250 MG TAB PO SCH (09:00)
--- NOTE | 2017-12-02 10:54 | PDHOMEO2F ---
Home Oxygen Face to Face Home Orders: I certify that a physician or a nurse practitioner or physician's drafter assistant has had a [id number] encounter with this patient on the date of this order due to the diagnosis listed, which relates to the primary reason the patient requires home oxygen. Alternative treatments have been tried, or considered, and deemed ineffective. It is anticipated that supplemental oxygen will result in improvement with treatment. Home oxygen qualifying diagnosis: Asthma SpO2 on room air (%): 84 Frequency of home oxygen needed: continuous Home oxygen liters per minute: 2LPM Home oxygen delivery device: nasal cannula Concentrator: Yes E-tanks for mobility and back up: Yes If ordering portable O2, is the patient mobile in the home?: Yes I certify that, based on these findings, the home oxygen is medically necessary for this patient for the following length of time. Length of time home oxygen needed: 1 month
[2017-12-02 11:45] VITALS: PULSE 82; RESP 15; O2SAT 96
[2017-12-02] MEDS ORDERED: WARFARIN SODIUM 1 MG TAB PO SCH (18:00)
--- NOTE | 2017-12-02 18:47 | PDDCSUM ---
Discharge Summary Discharge Summary: DISCHARGE SUMMARY FOLLOW-UP ITEMS: Reassess outpatient oxygen needs Outpatient pulmonary function test after acute episode resolved DATE OF ADMISSION: 11/30/2017 DATE OF DISCHARGE: 12/02/2017 DISCHARGE DIAGNOSES: 1. Acute asthma exacerbation 2. Possible acute diastolic congestive heart failure exacerbation 3. Acute hyponatremia 4. Permanent atrial fibrillation CONSULTATIONS: None PROCEDURES / IMAGING: Echocardiogram demonstrating preserved ejection fraction with concentric LVH, moderate tricuspid regurgitation CHIEF COMPLAINT: Acute shortness of breath SUBJECTIVE: Patient is feeling well at time discharge, she is ambulating safely with supplemental oxygen PHYSICAL EXAM ON DISCHARGE: Systolic blood pressure is 120, heart rate 80, afebrile overnight, satting 85% on room air, satting well on 2 L nasal cannula, faint expiratory wheezes bilaterally, but substantially improved from day prior, no bronchial breath sounds, no inspiratory crackles, no lower extremity edema, heart rhythm is irregularly irregular, but rate controlled LABS ON DISCHARGE: INR 2.3, creatinine 0.7, potassium 4.2 HOSPITAL COURSE BY PROBLEM: 1. Acute asthma exacerbation. Evidenced by diffuse expiratory wheeze bilaterally with symptomatic shortness of breath, hypoxia, reported history of asthma. She was initiated on steroids, duo nebulizer treatments, continued on her home dosage of azithromycin, and her wheezes and symptomatic shortness of breath substantially improved. She will be discharged on 3 subsequent days of prednisone 40 mg daily, as well as as needed DuoNeb treatments, via her home nebulizer machine. She does not require further antibiotics and she was prescribed as needed Tessalon Perles for supportive management. I recommend that she have an outpatient pulmonary function test performed once her acute episode has stabilized. 2. Possible acute diastolic congestive heart failure exacerbation. Evidenced by interstitial infiltrates on chest x-ray with pulmonary edema and a BNP of 70 100, possibly secondary to either uncontrolled atrial fibrillation with reduced cardiac output or acute illness. Her echocardiogram demonstrated concentric LVH , tricuspid regurgitation, mildly elevated RVSP. She was given 1 dose of IV Lasix and she had substantial urinary output, rendering her ear subsequently euvolemic and not requiring additional Lasix dosing. I recommend that she follow up with her outpatient provider and continue to monitor her weights. 3. Acute hyponatremia. Most likely secondary to acute illness and poor cardiac output from diastolic dysfunction and improved with IV diuresis. 4. Permanent atrial fibrillation. I recommend that we defer systemic anticoagulation to the outpatient setting with her primary care provider given the complexity of the other issues outlined above, she is not currently requiring marvin blocking agents. She is currently rate controlled. DISCHARGE MEDICATIONS: Please see official discharge medication reconciliation sheet in chart , prednisone 40 daily x3 subsequent days, as needed duo nebs, as needed Alicia Gasca. DISCHARGE INSTRUCTIONS: Please follow-up with your primary care office, get pulmonary function test, readdressed systemic anticoagulation. TIME SPENT: Greater than 30 minutes were spent on direct patient care, as well as discharge planning and preparation.
== END 2017-12-02 13:38 | disposition home or self-care (01) | DRG 292 ==
LOC: F2W 20:11 → OBSVTOIN 12-01 14:25
PROVIDERS: ADMIT Internal Medicine; ATTEND Internal Medicine
DX: I50.31 Acute diastolic (congestive) heart failure (principal); J45.901 Unspecified asthma with (acute) exacerbation; E87.1 Hypo-osmolality and hyponatremia; I48.2 Chronic atrial fibrillation
CPT/HCPCS: 97116-GP; 97161-GP; G0378; G8978-GP-CJ; G8979-GP-CI; J1940; J7512; J7613

== ENCOUNTER → 2017-11-30 | Outpatient (CLI) | payer OTHER, MEDICAID | LOC: CIMAGING 14:13 | PROVIDERS: ATTEND Family Medicine | DX: R42 Dizziness and giddiness (principal); R55 Syncope and collapse; Z79.01 Long term (current) use of anticoagulants | CPT/HCPCS: 70450-PO ==

== ENCOUNTER → 2017-12-28 | Outpatient (CLI) | payer OTHER, MEDICAID | LOC: CIMAGING 14:16 | PROVIDERS: ATTEND Family Medicine | DX: J98.4 Other disorders of lung (principal) | CPT/HCPCS: 71260; Q9967 ==

== ENCOUNTER → 2018-02-05 | Outpatient (CLI) | payer OTHER, MEDICAID | LOC: CIMAGING 14:57 | PROVIDERS: ATTEND Family Medicine | DX: I51.7 Cardiomegaly (principal); J81.1 Chronic pulmonary edema; J42 Unspecified chronic bronchitis; J90 Pleural effusion, not elsewhere classified | CPT/HCPCS: 71046-PO ==

== ENCOUNTER 2018-04-05 12:16 | Inpatient (IN) | payer OTHER, MEDICAID ==
--- NOTE | 2018-04-05 13:09 | CPEKG ---
Heart Rate: 91 RR Interval: 659 QRSD Interval: 72 QT Interval: 356 QTC Interval: 439 QRS [place]: 207 T Wave [place]: 15 EKG Severity - ABNORMAL ECG - EKG Impression: ATRIAL FIBRILLATION, V-RATE 69-75 EKG Impression: MULTIFORM VENTRICULAR PREMATURE COMPLEXES EKG Impression: ANTERIOR INFARCT, AGE INDETERMINATE Electronically Signed By: Verona Ring 05-Apr-2018 22:21:15
[2018-04-05] MEDS ORDERED: IPRATROPIUM/ALBUTEROL 3 ML DEYVIAL IH ONE (13:40)
--- NOTE | 2018-04-05 13:44 | EDPHY ---
H & P Stated Complaint: fall from standing, c/o back and left hip pain Time Seen by Provider: 04/05/18 13:06 HPI/ROS: CHIEF COMPLAINT: Fall HISTORY OF PRESENT ILLNESS: This is an 87-year-old female with a history of reactive airway disease, CHF first diagnosed in November, atrial fibrillation, and DVT. She is on 2 L nasal cannula home oxygen at all times. This morning she was walking out of her room at home when she appeared to pass out and fall backwards. She awoke relatively quickly and has complained of left low back and hip pain. She denies any chest pain. She is chronically short of breath but thinks that her breathing may be slightly worse today than usual. She wears oxygen at all times. History is obtained from family members as the patient is Hmong speaking. REVIEW OF SYSTEMS: A ten point review of systems was performed and is negative with the exception of the items mentioned in the HPI. Left breast infection for which she is taking oral antibiotics. She has improved markedly since beginning the antibiotics. No recent fever. Past medical history: 1. Diastolic heart failure 2. Reactive airway disease 3. atrial fibrillation Social history: She is Hmong. She lives with family. She does not use tobacco or alcohol. General Appearance: Alert. Vital signs reviewed. Blood pressure 153/111. Eyes: Pupils equal and round, no conjunctival injection, no discharge. Anicteric. ENT, Mouth: Mucous membranes are moist, no oropharyngeal erythema or edema. Neck: No lymphadenopathy, supple. Jugular venous distention present Respiratory: Diffuse wheezes, respiratory rate in the high 20s, poor air exchange. Thorax: No crepitus and no tenderness to palpation of the thorax. There is erythema, but no warmth of the left breast. Cardiovascular: Regular rate and rhythm; no murmur, rub, or gallop. Gastrointestinal: Abdomen is soft and nontender, no masses or organomegaly, bowel sounds normal. Skin: Warm and dry, no rashes on exposed skin, normal color. Bruising on the right upper arm. Back: Nontender to palpation over the thoracolumbar spine. No CVAT. Extremities: 2+ bilateral lower extremity edema, no calf tenderness or swelling. Neurological: Alert and oriented. Moving all four extremities easily and equally. Psychiatric: Normal affect. - Personal History Tetanus Vaccine Date: 2012 - Medical/Surgical History Hx Asthma: Yes Hx Chronic Respiratory Disease: No Hx Diabetes: No Hx Cardiac Disease: Yes Hx Renal Disease: No Hx Cirrhosis: No Hx Alcoholism: No Hx HIV/AIDS: No Hx Splenectomy or Spleen Trauma: No Other PMH: ASTHMA, blood clots, CHF - Social History Smoking Status: Never smoked Constitutional: Initial Vital Signs Temperature (C) 36.6 C 04/05/18 12:19 Heart Rate 83 04/05/18 12:19 Respiratory Rate 18 04/05/18 12:19 Blood Pressure 153/111 H 04/05/18 12:19 O2 Sat (%) 89 L 04/05/18 12:19 O2 Delivery Mode Nasal Cannula O2 (L/minute) 2.5 Allergies/Adverse Reactions: No Allergies [NKDA] Allergy (Verified 04/05/18 12:18) Home Medications: Medication Instructions Recorded Albuterol [Proventil Inhaler HFA 1 - 2 puffs IH Q4H PRN 09/25/17 (*)] Warfarin Sodium [Coumadin 1MG (*)] 1 mg PO DAILY@18 11/30/17 Ipratropium/Albuterol [Duoneb (*)] 3 ml IH Q6HRS PRN #20 deyvial 12/02/17 Acetaminophen [Tylenol ES 500 mg 1,000 mg PO DAILY 04/05/18 (*)] Cephalexin [Keflex (*)] 500 mg PO Q12H 04/05/18 Furosemide [Lasix 20 MG (*)] 10 mg PO DAILY 04/05/18 Medical Decision Making - Diagnostics EKG Interpretation: 12 lead EKG is interpreted in Trace master View by emergency department physician. It shows atrial fibrillation. Imaging Results: Imaging Impressions Chest X-Ray 04/05/18 13:40 Impression: 1. Chronic infiltrates right upper lobe and right lung base. Consider chronic bronchiolitis or cryptogenic organizing pneumonia. 2. Small bilateral pleural effusions suspected. 3. Moderate cardiomegaly with prominence of pulmonary vasculature centrally. Consider mild fluid overload.. ED Course/Re-evaluation: 87-year-old female with a possible syncopal episode. It is difficult to tell exactly what happened. She denies any chest pain at the time of the fall. She was wearing her oxygen. No seizure activity was described. She does have a mildly elevated troponin. She also appears to be volume overloaded and is having acute on chronic hypoxic respiratory failure. BNP is elevated. Chest x- ray shows evidence of heart failure. INR subtherapeutic. She does have a history of DVT. In the emergency department she received a DuoNeb and 60 mg of prednisone. She is being admitted to a monitored bed. She does not have any advance directives at this point. Differential Diagnosis: Shortness of breath including but not limited to pulmonary infectious process, COPD, asthma, pulmonary embolus and congestive heart failure. Syncope including but not limited to vasovagal syncope, arrhythmia, dehydration, and blood loss. - Data Points Laboratory Results: Laboratory Results 04/05/18 14:15 04/05/18 14:15 04/05/18 04/05/18 04/05/18 14:25 14:15 14:15 WBC RBC Hgb Hct MCV MCH MCHC RDW Plt Count MPV Neut % (Auto) Lymph % (Auto) [place] % (Auto) Eos % (Auto) Baso % (Auto) Nucleat RBC Rel Count Absolute Neuts (auto) Absolute Lymphs (auto) Absolute Monos (auto) Absolute Eos (auto) Absolute Basos (auto) Absolute Nucleated RBC Immature Gran % Seg Neutrophils % Band Neutrophils % Lymphocytes % Monocytes % Eosinophils % Basophils % Metamyelocytes % Myelocytes % Promyelocytes % Blast Cells % Immature Gran # Absolute Seg Neuts Absolute Band Neuts Absolute Lymphocytes Absolute Monocytes Absolute Eosinophils Absolute Basophils Absolute Metamyelocyte Absolute Myelocytes Absolute Promyelocytes Absolute Plasma Cells Absolute Blast Cells Plasma Cells % Platelet Estimate Oval Macrocytes Elliptocytes PT 18.5 SEC H SEC (12.0-15.0) INR 1.53 H (0.83-1.16) Sodium TNP Potassium TNP Chloride TNP Carbon Dioxide TNP Anion Gap TNP BUN TNP Creatinine TNP Estimated GFR TNP Glucose TNP Calcium TNP POC Troponin I 0.12 ng/mL H ng/mL (0.00-0.08) NT-Pro-B Natriuret Pep 48183 pg/mL H pg/mL (0-450) 04/05/18 14:15 WBC 7.51 10^3/uL 10^3/uL (3.80-9.50) RBC 4.76 10^6/uL 10^6/uL (4.18-5.33) Hgb 14.5 g/dL g/dL (12.6-16.3) Hct 46.3 % % (38.0-47.0) MCV 97.3 fL fL (81.5-99.8) MCH 30.5 pg pg (27.9-34.1) MCHC 31.3 g/dL L g/dL (32.4-36.7) RDW 17.1 % H % (11.5-15.2) Plt Count 130 10^3/uL L 10^3/uL (150-400) MPV 10.9 fL fL (8.7-11.7) Neut % (Auto) Not Reported Lymph % (Auto) Not Reported [place] % (Auto) Not Reported Eos % (Auto) Not Reported Baso % (Auto) Not Reported Nucleat RBC Rel Count Not Reported Absolute Neuts (auto) Not Reported Absolute Lymphs (auto) Not Reported Absolute Monos (auto) Not Reported Absolute Eos (auto) Not Reported Absolute Basos (auto) Not Reported Absolute Nucleated RBC Not Reported Immature Gran % Not Reported Seg Neutrophils % 79.0 % % Band Neutrophils % 0 % % Lymphocytes % 17.0 % % Monocytes % 2.0 % % Eosinophils % 1.0 % % Basophils % 1.0 % % Metamyelocytes % 0 % % Myelocytes % 0 % % Promyelocytes % 0 % % Blast Cells % 0 % % Immature Gran # Not Reported Absolute Seg Neuts 5.93 10^/uL 10^/uL (1.70-6.50) Absolute Band Neuts 0.00 10^3/uL 10^3/uL (0.00-0.70) Absolute Lymphocytes 1.28 10^3/uL 10^3/uL (1.00-3.00) Absolute Monocytes 0.15 10^3/uL L 10^3/uL (0.30-0.80) Absolute Eosinophils 0.08 10^3/uL 10^3/uL (0.03-0.40) Absolute Basophils 0.08 10^3/uL 10^3/uL (0.02-0.10) Absolute Metamyelocyte 0.00 10^3/mL 10^3/mL (0.00-0.00) Absolute Myelocytes 0.00 10^3/mL 10^3/mL (0.00-0.00) Absolute Promyelocytes 0.00 10^3/uL 10^3/uL (0.00-0.00) Absolute Plasma Cells 0.00 10^3/uL 10^3/uL (0.00-0.00) Absolute Blast Cells 0.00 10^3/uL 10^3/uL (0.00-0.00) Plasma Cells % 0 % % Platelet Estimate DECREASED L (ADEQ) Oval Macrocytes 1+ H Elliptocytes 1+ H PT INR Sodium Potassium Chloride Carbon Dioxide Anion Gap BUN Creatinine Estimated GFR Glucose Calcium POC Troponin I NT-Pro-B Natriuret Pep Medications Given: Albuterol/Ipratropium (Duoneb) 3 ml IH Q6HRS PRN PRN Reason: Short of Breath/Dyspnea Stop: 10/02/18 17:45 Last Admin: 04/05/18 21:18 Dose: 3 ml Cephalexin HCl (Keflex) 500 mg PO Q12H [facility] PRN Reason: Protocol Stop: 05/05/18 17:59 Last Admin: 04/05/18 18:57 Dose: 500 mg Enoxaparin Sodium (Lovenox) 50 mg SC BID [facility] Stop: 10/02/18 20:59 Last Admin: 04/05/18 21:35 Dose: 50 mg Metoprolol Tartrate (Lopressor) 6.25 mg PO BID [facility] Stop: 10/02/18 18:14 Last Admin: 04/05/18 18:57 Dose: 6.25 mg Warfarin Sodium (Coumadin) 1 mg PO DAILY@1600 [facility] Stop: 10/02/18 18:44 Last Admin: 04/05/18 18:57 Dose: 1 mg Discontinued Medications Albuterol/Ipratropium (Duoneb) 3 ml IH EDNOW ONE Stop: 04/05/18 13:41 Last Admin: 04/05/18 13:57 Dose: 3 ml Furosemide (Lasix Injection) 10 mg IVP ONCE ONE Stop: 04/05/18 16:51 Last Admin: 04/05/18 17:57 Dose: 10 mg Warfarin Sodium (Coumadin) 0.5 mg PO MOWEFR@1800 [facility] Stop: 10/02/18 17:59 Last Admin: 04/05/18 19:20 Dose: Not Given Point of Care Test Results: Chemistry 04/05/18 14:25 POC Troponin I 0.12 ng/mL H ng/mL (0.00-0.08) Departure - Departure Disposition: [facility] Inpatient Acute Clinical Impression: Syncope Qualifiers: Syncope type: unspecified Qualified Code(s): R55 - Syncope and collapse CHF (congestive heart failure) Qualifiers: Heart failure type: unspecified Heart failure chronicity: acute on chronic Qualified Code(s): I50.9 - Heart failure, unspecified Condition: Fair
[2018-04-05 14:43] LABS: INR 1.53 (0.83-1.16); PROTIME(PATIENT) 18.5 SEC (12.0-15.0)
[2018-04-05 14:47] LABS: PLATELET COUNT 130 10^3/uL (150-400)
[2018-04-05] MEDS ORDERED: ONDANSETRON DISINTEGRATING 4 MG TAB PO PRN (14:58)
[2018-04-05] MEDS ORDERED: ONDANSETRON 4 MG/2 ML VIAL IVP PRN (14:58)
--- NOTE | 2018-04-05 16:38 | GHP ---
[f rep st] HISTORY AND PHYSICAL DATE OF ADMISSION: 04/05/2018 CHIEF COMPLAINT: Possible syncope. HISTORY OF PRESENT ILLNESS: History is obtained from patient's daughter and granddaughter who are at bedside as patient has underlying dementia. She is 87- year-old female with congestive heart failure, atrial fibrillation, and DVT. This morning, family heard a thud, went upstairs, and she was lying on her side. Patient says she was hanging her oxygen on a hook and then woke up on the floor. She denies chest pain or shortness of breath. Per family, she is more tired, sleeping most of the day, and not doing her normal activities. She is weak. Her appetite has decreased over the last few months since her hospitalization in November. She intermittently takes her Lasix. Is not eating very much. She is currently being treated for left breast cellulitis per PCP, starting antibiotics last week. Has a walker, cane, but does not use them. Echo in November 2017, shows EF of 75% with biatrial enlargement, mild AR, moderate TR with an RVSP of 47 mmHg, and diastolic dysfunction. REVIEW OF SYSTEMS: I completed a 10-point review of system. PAST MEDICAL HISTORY: Asthma, diastolic heart failure, permanent atrial fibrillation, dementia per family. PAST SURGICAL HISTORY: None. SOCIAL HISTORY: Lives with her granddaughters in [place]. No alcohol or tobacco. Has a walker, cane, but does not use. She is Hmong. FAMILY HISTORY: Noncontributory. HOME MEDICATIONS: Keflex 500 mg q.12, Tylenol, DuoNeb, Lasix 10 mg daily, Coumadin 0.5 mg Thursday, Thursday, Thursday, 1 mg every other day, albuterol. PHYSICAL EXAMINATION: VITAL SIGNS: Temperature 36.6, blood pressure is 167/121 , heart rate in the 80s, respirations 18-28, 98% on 4 L. GENERAL: Elderly female lying in bed in no acute distress. HEENT: PERRLA. Moist mucous membranes. CV: Irregularly irregular. +2 ankle edema over shins bilateral legs. Elevated JVD. LUNGS: Expiratory wheezing throughout. Decreased breath sound at bases. ABDOMEN: Soft, nontender, nondistended. Positive bowel sounds. : No [place]. MUSCULOSKELETAL: She is moving all 4 extremities. SKIN: Left breast with mild erythema. No induration or abscess noted. Not overtly warm. Right ear with ecchymosis upper inner location. NEURO: No focal deficits. PSYCH: She is alert. She is answering some questions. LABORATORY/IMAGING: WBC is 7, hemoglobin 14, hematocrit 46, platelets 130. INR is 1.5, PT is 18. BMP is pending. Troponin 0.12. EKG is personally reviewed by me. Atrial fibrillation, PVCs, Q-waves V3. Chest x-ray personally reviewed by me. Cardiomegaly, bilateral pleural effusions, Interstitial edema. ASSESSMENT/PLAN: 1. Possible syncope: Unclear if she actually blacked out. She was wearing her oxygen. She denies chest pain or shortness of breath with me. Denies pain now. No tenderness over any joints. Will monitor on telemetry. Arrhythmia is a possibility. Echo in November with normal EF, biatrial enlargement. 2. Acutely decompensated diastolic heart failure: volume overload with edema on exam and x-ray. Low-dose lasix this darrian; reassess in morning for additional dosing. 3. Indeterminate troponin: likely demand with volume overload; denies chest pain. We will repeat troponin this evening. D/w family if want to pursue further cardiac evaluation/procedures. 4. Permanent atrial fibrillation: not on rate-control meds at home. Give low- dose BB. Coumadin is subtherapeutic; bridge with Lovenox for CHADSvasc 4. 5. History of deep venous thrombosis: Again resume Coumadin. 6. Acute on chronic hypoxic resp failure: volume overloaded on exam. Gentle diuresis. Resp panel pending to r/o infection 7. Goals: I had a lengthy conversation with daughter and granddaughters about decline of her health since November. Per their report, she has stated that she is tired of carrying on. She is not compliant with some of her medications. They want to speak with their brothers as their culture is very patriarchal. We will provide them with a MOST form. Would consider palliative consult tomorrow. 9. Dementia: progressive per family. Not agitated 10. Breast cellulitis: mild redness. Resume Keflex, monitor INR 8. Diet: Regular. 9. Deep venous thrombosis prophylaxis: She is on Coumadin. DISPOSITION: Patient warrants inpatient admission for acute diastolic heart failure requiring IV Lasix and telemetry. /[id number]/MODL MTDD
[2018-04-05] MEDS ORDERED: FUROSEMIDE 20 MG/2 ML VIAL IVP ONE (16:50)
--- NOTE | 2018-04-05 17:44 | PDMN ---
Medical Necessity Medical necessity: Pt meets INPT criteria per MD as of 04/05/18 and [facility] [place] (est. LOS >2 [place] for eval/mgmt of acutely decompensated diastolic heart failure with volume overload, indeterminate troponin, acute on chronic hypoxic resp failure, possible syncope, permanent afib).
[2018-04-05] MEDS ORDERED: ALBUTEROL 60 PUFFS/8 GM MDI IH PRN (17:46)
[2018-04-05] MEDS ORDERED: WARFARIN SODIUM 1 MG TAB PO SCH (18:00)
[2018-04-05] MEDS ORDERED: METOPROLOL TARTRATE 25 MG TAB PO SCH (18:15)
[2018-04-05] MEDS: METOPROLOL TARTRATE 25 MG TAB PO SCH ×2 (18:57→22:21)
[2018-04-05] MEDS: CEPHALEXIN 500 MG CAP PO SCH (18:57)
[2018-04-05] MEDS: WARFARIN SODIUM 1 MG TAB PO SCH (18:57)
[2018-04-05] MEDS: IPRATROPIUM/ALBUTEROL 3 ML DEYVIAL IH PRN (21:18)
[2018-04-05] MEDS: ENOXAPARIN 60 MG/0.6 ML SYR SC SCH (21:35)
[2018-04-06 04:59] LABS: INR 1.79 (0.83-1.16); PROTIME(PATIENT) 20.9 SEC (12.0-15.0)
[2018-04-06] MEDS: CEPHALEXIN 500 MG CAP PO SCH ×2 (05:57→17:55)
[2018-04-06] MEDS: ACETAMINOPHEN 650 MG/20.3 ML UDCUP PO SCH (09:45)
[2018-04-06] MEDS: ENOXAPARIN 60 MG/0.6 ML SYR SC SCH ×2 (09:46→21:17)
[2018-04-06] MEDS: METOPROLOL TARTRATE 25 MG TAB PO SCH ×2 (09:56→21:17)
--- NOTE | 2018-04-06 13:05 | HOSPPROG ---
Hospitalist Progress Note Assessment/Plan: 87 yo F w CHRF, AF admitted w possible syncope syncope: no events tele trop indet follow decompensated chf: has pulm and peripheral edema gentle siuresis AF: low dose metoprolol started on warfarin w subtherapeutic INR bridging therapy started plan of care: patient minimally interactive and has been participating in life and her care less lately granddaughter comments that she has said she wishes to continue living will discuss further in AM dispo: inpatient Subjective: ekg: AF w no ischemic changes (interp by me). tele: no events ( interp by me) Objective: Vital Signs Temp Pulse Resp BP Pulse Ox 36.0 C 79 28 H 107/74 98 04/06/18 11:05 04/06/18 11:05 04/06/18 11:05 04/06/18 11:05 04/06/18 11:05 Microbiology 04/05/18 15:45 Respiratory Panel (PCR) - Final Nasal, Sinus - Swab No Organism Detected Laboratory Results 04/05/18 15:47 04/05/18 04/06/18 04/07/18 05:59 05:59 05:59 Intake Total 450 0 Output Total 890 40 Balance -440 -40 PT 20.9 SEC (12.0-15.0) H 04/06/18 03:47 INR 1.79 (0.83-1.16) H 04/06/18 03:47 - Physical Exam Constitutional: other (minimally interactive) Eyes: PERRL, anicteric sclera Ears, Nose, Mouth, Throat: moist mucous membranes, hearing normal Cardiovascular: irregularly irregular, No systolic murmur Respiratory: no respiratory distress, other (crackles laterally) Gastrointestinal: normoactive bowel sounds, soft, non-tender abdomen Genitourinary: No dumont in urethra Skin: warm, normal color Musculoskeletal: full muscle strength, no muscle tenderness Neurologic: No AAOx3 ICD10 Worksheet Patient Problems: Problems Problem Status Onset Congestive heart failure Acute Syncope Acute Gastric outflow obstruction Acute Nausea Acute
[2018-04-06] MEDS: FUROSEMIDE 20 MG/2 ML VIAL IVP SCH (14:04)
--- NOTE | 2018-04-06 16:41 | ASMTCMCOM ---
CM Note CM Note Notes: 04/06/2018 Case Management Note Pt admitted for treatment of syncope, CHF and bilateral effusions. Pt has history of dementia. This is the third admission for pt since September. Met w/pt and 2 family members who requested case management call granddaughter Luis Manuel at [phone]. Pt lives with Luis Manuel. Left VM for Luis Manuel inquiring if pt has skilled home care currently. Family provides all cares for patient 06/04. PT is recommending 06/04 supervision vs. SNF. Pt has Medicare Part B IP only with Medicaid. If pt were to go to SNF her Medicare will not cover it. Medicaid will require a ULTC 100 and a 30 day stay. Notified family. Family plans to care for pt in their home. Case Management d/c poc: to be determined. Case Management to follow. Date Signed: 04/06/2018 04:40 PM Electronically Signed By:Ambar Almonte RN
[2018-04-06] MEDS: WARFARIN SODIUM 1 MG TAB PO SCH (17:55)
[2018-04-06] MEDS: IPRATROPIUM/ALBUTEROL 3 ML DEYVIAL IH PRN (22:42)
[2018-04-07 04:18] LABS: INR 2.91 (0.83-1.16); PROTIME(PATIENT) 30.3 SEC (12.0-15.0)
[2018-04-07] MEDS: CEPHALEXIN 500 MG CAP PO SCH (06:31)
[2018-04-07] MEDS ORDERED: CEPHALEXIN 250 MG/5 ML BULK BOTTLE PO SCH ×4 (08:30→18:00)
[2018-04-07] MEDS: ACETAMINOPHEN 650 MG/20.3 ML UDCUP PO SCH (09:35)
[2018-04-07] MEDS: FUROSEMIDE 20 MG/2 ML VIAL IVP SCH (09:35)
[2018-04-07] MEDS: METOPROLOL TARTRATE 25 MG TAB PO SCH ×2 (09:36→19:57)
[2018-04-07] MEDS: IPRATROPIUM/ALBUTEROL 3 ML DEYVIAL IH PRN (10:38)
[2018-04-07] MEDS: ENOXAPARIN 60 MG/0.6 ML SYR SC SCH (11:24)
--- NOTE | 2018-04-07 12:21 | ASMTCMCOM ---
CM Note CM Note Notes: CM spoke to Melo, cardroom manager of spiritual care. Melo arranged for a palliative meeting for tomorrow at 1PM to discuss goals of care and to address code status. PT is recommending home w/ 24hr supervision vs SNF. OT is recommending HC vs home w/ 24hr supervision. CM attempted to meet w/ pt and family in room for dispo planning. Pts daughter would like CM to discuss plan of care in family meeting. CM to follow. Plan: TBD Date Signed: 04/07/2018 12:21 PM Electronically Signed By:DANIELLE Cabrera
--- NOTE | 2018-04-07 14:29 | HOSPPROG ---
Hospitalist Progress Note Assessment/Plan: 87 yo F w CHRF, AF admitted w possible syncope syncope: no events tele trop indet decompensated chf: has pulm and peripheral edema gentle diuresis still w peripheral edema AF: low dose metoprolol started inr therapeutic plan of care: patient minimally interactive and has been participating in life and her care less lately granddaughter comments that she has said she wishes to continue living will discuss further in AM pall care meeting 04/08 more interactive today dispo: inpatient Subjective: tele: AF (interp by me) Objective: Vital Signs Temp Pulse Resp BP Pulse Ox 36.3 C 75 12 93/59 L 96 04/07/18 11:32 04/07/18 11:32 04/07/18 11:32 04/07/18 11:32 04/07/18 11:32 Laboratory Results 04/07/18 03:19 04/06/18 04/07/18 04/08/18 05:59 05:59 05:59 Intake Total 450 650 Output Total 890 515 200 Balance -440 135 -200 PT 30.3 SEC (12.0-15.0) H 04/07/18 03:19 INR 2.91 (0.83-1.16) H 04/07/18 03:19 - Physical Exam Constitutional: no apparent distress, appears nourished Eyes: PERRL, anicteric sclera Ears, Nose, Mouth, Throat: moist mucous membranes, hearing normal Cardiovascular: no murmur, rub, or gallop, irregularly irregular, other Respiratory: no respiratory distress, no rales or rhonchi Gastrointestinal: normoactive bowel sounds, soft, non-tender abdomen Genitourinary: No dumont in urethra Skin: warm, other (breast cellulitis appears to have resolved) Musculoskeletal: full muscle strength Neurologic: AAOx3 Psychiatric: interacting appropriately ICD10 Worksheet Patient Problems: Problems Problem Status Onset Congestive heart failure Acute Syncope Acute Gastric outflow obstruction Acute Nausea Acute
[2018-04-07] MEDS: WARFARIN SODIUM 1 MG TAB PO SCH (16:43)
[2018-04-07] MEDS: ACETAMINOPHEN 325 MG TAB PO PRN (23:48)
[2018-04-08] MEDS: METOPROLOL TARTRATE 25 MG TAB PO SCH ×2 (08:53→20:40)
[2018-04-08] MEDS: ACETAMINOPHEN 650 MG/20.3 ML UDCUP PO SCH (08:53)
[2018-04-08] MEDS: FUROSEMIDE 20 MG/2 ML VIAL IVP SCH (08:53)
[2018-04-08 10:29] LABS: INR 3.61 (0.83-1.16); PROTIME(PATIENT) 35.7 SEC (12.0-15.0)
[2018-04-08] MEDS ORDERED: FUROSEMIDE 20 MG/2 ML VIAL IVP ONE (13:27)
--- NOTE | 2018-04-08 13:30 | HOSPPROG ---
Hospitalist Progress Note Assessment/Plan: 87 yo F w CHRF, AF admitted w possible syncope syncope: no events tele trop indet decompensated chf: has pulm and peripheral edema gentle diuresis still w peripheral edema 11/29 echo w diastolic dysfunction AF: low dose metoprolol started stop warfarin as falls frequently at home plan of care: patient minimally interactive and has been participating in life and her care less lately granddaughter comments that she has said she wishes to continue living will discuss further in AM pall care meeting 04/08 family happy caring for her at home they acknowledge decline discussed code status, they are considering dispo: inpatient Subjective: palliative care consult. 35 spent at bedside Objective: Vital Signs Temp Pulse Resp BP Pulse Ox 36.4 C 78 19 134/88 H 98 04/08/18 04:00 04/08/18 08:00 04/08/18 08:00 04/08/18 08:00 04/08/18 08:00 Laboratory Results 04/07/18 03:19 04/07/18 04/08/18 04/09/18 05:59 05:59 05:59 Intake Total 650 550 Output Total 515 700 Balance 135 -150 PT 35.7 SEC (12.0-15.0) H 04/08/18 10:05 INR 3.61 (0.83-1.16) H 04/08/18 10:05 - Physical Exam Constitutional: no apparent distress, appears nourished Eyes: PERRL, anicteric sclera Ears, Nose, Mouth, Throat: moist mucous membranes, hearing normal Cardiovascular: regular rate and rhythym, no murmur, rub, or gallop, edema Respiratory: no respiratory distress, inspiratory crackles, No no rales or rhonchi Gastrointestinal: normoactive bowel sounds, soft, non-tender abdomen Genitourinary: No dumont in urethra Skin: warm, normal color Musculoskeletal: full muscle strength, no muscle tenderness Neurologic: AAOx3 ICD10 Worksheet Patient Problems: Problems Problem Status Onset Congestive heart failure Acute Syncope Acute Gastric outflow obstruction Acute Nausea Acute
[2018-04-08] MEDS: ACETAMINOPHEN 325 MG TAB PO PRN ×2 (14:36→20:51)
--- NOTE | 2018-04-08 14:50 | ASMTCMCOM ---
CM Note CM Note Notes: CM attended palliative meeting w/ [place], Dr. Crawley and family. Code status discussed in meeting. Family will need to think about it and speak to Dr. Crawley about it. Anticipate d/c for tomorrow. Dr. Crawley wants to keep pt another night to offload more fluids. Pts family is agreeable to having HC and palliative w/ [facility]. CM provided pts grand daughter w/ list of HC agencies. Pts grand daughter will notify CM of chosen HC agency. CM provided family w/ list of [facility]. CM to follow. Plan: [facility] w/ HC Date Signed: 04/08/2018 02:50 PM Electronically Signed By:DANIELLE Cabrera
[2018-04-09] MEDS: METOPROLOL TARTRATE 25 MG TAB PO SCH ×2 (09:25→21:34)
[2018-04-09] MEDS: FUROSEMIDE 20 MG/2 ML VIAL IVP SCH (09:25)
[2018-04-09] MEDS: ACETAMINOPHEN 650 MG/20.3 ML UDCUP PO SCH (09:25)
[2018-04-09] MEDS ORDERED: FUROSEMIDE 20 MG/2 ML VIAL IVP ONE (14:32)
--- NOTE | 2018-04-09 14:47 | HOSPPROG ---
Hospitalist Progress Note Assessment/Plan: 87 yo F w CHRF, AF admitted w possible syncope syncope: no events tele trop indet decompensated chf: has pulm and peripheral edema gentle diuresis still w peripheral edema 11/29 echo w diastolic dysfunction continue diuresis add'l day add'l dose f IV lasix today AF: low dose metoprolol started stop warfarin as falls frequently at home plan of care: patient minimally interactive and has been participating in life and her care less lately granddaughter comments that she has said she wishes to continue living will discuss further in AM pall care meeting 04/08 family happy caring for her at home they acknowledge decline now dnr dispo: inpatient Subjective: family wishes patient to be DNR Objective: Vital Signs Temp Pulse Resp BP Pulse Ox 37.0 C 74 14 130/82 H 97 04/09/18 08:00 04/09/18 11:39 04/09/18 11:39 04/09/18 11:39 04/09/18 11:39 Laboratory Results 04/09/18 03:45 04/08/18 04/09/18 04/10/18 05:59 05:59 05:59 Intake Total 550 850 Output Total 700 500 Balance -150 350 PT 35.7 SEC (12.0-15.0) H 04/08/18 10:05 INR 3.61 (0.83-1.16) H 04/08/18 10:05 - Physical Exam Constitutional: no apparent distress, appears nourished Eyes: PERRL, anicteric sclera Ears, Nose, Mouth, Throat: moist mucous membranes, hearing normal Cardiovascular: regular rate and rhythym, no murmur, rub, or gallop Respiratory: no respiratory distress, no rales or rhonchi Gastrointestinal: normoactive bowel sounds, soft, non-tender abdomen Genitourinary: no bladder fullness, No dumont in urethra Skin: warm, normal color Musculoskeletal: full muscle strength Neurologic: AAOx3 ICD10 Worksheet Patient Problems: Problems Problem Status Onset Congestive heart failure Acute Syncope Acute Gastric outflow obstruction Acute Nausea Acute
[2018-04-09] MEDS: ACETAMINOPHEN 325 MG TAB PO PRN ×2 (15:07→21:32)
--- NOTE | 2018-04-09 15:24 | ASMTCMCOM ---
CM Note CM Note Notes: Pts case discussed w/ Dr. Crawley. CM spoke w/ pts grand daughter Luis Manuel on the phone. Luis Manuel would like to hold off on referral to HC agency. Luis Manuel would like pt to continue to have palliative follow up on an outpatient basis. CM to follow. Plan: [facility] and family support Date Signed: 04/09/2018 03:23 PM Electronically Signed By:DANIELLE Cabrera
[2018-04-10] MEDS: ACETAMINOPHEN 650 MG/20.3 ML UDCUP PO SCH (10:01)
[2018-04-10] MEDS: METOPROLOL TARTRATE 25 MG TAB PO SCH (10:02)
[2018-04-10 11:49] VITALS: BP 138/87
--- NOTE | 2018-04-10 13:06 | HOSPPROG ---
Hospitalist Progress Note Assessment/Plan: 87 yo F w CHRF, AF admitted w possible syncope syncope: no events tele trop indet decompensated chf: has pulm and peripheral edema gentle diuresis still w peripheral edema 11/29 echo w diastolic dysfunction continue diuresis add'l day add'l dose f IV lasix today AF: low dose metoprolol started stop warfarin as falls frequently at home plan of care: patient minimally interactive and has been participating in life and her care less lately granddaughter comments that she has said she wishes to continue living will discuss further in AM pall care meeting 04/08 family happy caring for her at home they acknowledge decline now dnr dispo: home today > 30 minutes Subjective: anxious for dc Objective: Vital Signs Temp Pulse Resp BP Pulse Ox 36.3 C 88 18 138/87 H 99 04/10/18 11:43 04/10/18 11:43 04/10/18 11:43 04/10/18 11:43 04/10/18 11:43 Laboratory Results 04/10/18 09:30 04/09/18 04/10/18 04/11/18 05:59 05:59 05:59 Intake Total 850 650 Output Total 500 200 Balance 350 450 PT 35.7 SEC (12.0-15.0) H 04/08/18 10:05 INR 3.61 (0.83-1.16) H 04/08/18 10:05 - Physical Exam Constitutional: no apparent distress, appears nourished Eyes: PERRL, anicteric sclera Ears, Nose, Mouth, Throat: moist mucous membranes, hearing normal Cardiovascular: regular rate and rhythym, no murmur, rub, or gallop Respiratory: no respiratory distress, no rales or rhonchi Gastrointestinal: normoactive bowel sounds, soft, non-tender abdomen Genitourinary: no bladder fullness, No dumont in urethra Skin: warm, normal color Musculoskeletal: full muscle strength, no muscle tenderness Neurologic: AAOx3 ICD10 Worksheet Patient Problems: Problems Problem Status Onset Congestive heart failure Acute Syncope Acute Gastric outflow obstruction Acute Nausea Acute
[2018-04-10] MEDS: FUROSEMIDE 20 MG/2 ML VIAL IVP SCH (13:30)
--- NOTE | 2018-04-10 14:05 | ASMTLACE ---
[facility]ACE Length of stay for Answers: 4-6 days current admission Acuity / Level of Answers: Yes Care: Did the patient have an inpatient admission? Comorbidities - select Answers: Congestive heart failure all that apply Dementia Other Notes: AFib; DVT; Reactive airway disease # of Emergency department Answers: 3-4 visits in the last 6 months Score: 16 Date Signed: 04/10/2018 02:04 PM Electronically Signed By:Monica Velez
--- NOTE | 2018-04-10 14:39 | GDS ---
[f rep st] DISCHARGE SUMMARY DISCHARGE DIAGNOSES: 1. Diastolic heart failure exacerbation. 2. Supratherapeutic INR. 3. Functional decline. 4. Atrial fibrillation. 5. Dementia. 6. Chronic hypoxemic respiratory failure. Please see Admission History and Physical by Dr. Monisha Marin. The patient presented with a fall, possible syncopal episode. She was admitted, found to have a heart failure exacerbation with pulmona ry edema and lower extremity edema. Her INR was 1.5. She was on Coumadin. She was diuresed. There was a palliative care meeting and there was a plan ultimately to discontinue her Coumadin given her falls, and additionally to make her do not resuscitate. She is discharged home with an unchanged med ication regimen. /[id number]/MODL
--- NOTE | 2018-04-10 14:40 | ASMTDCNOTE ---
Case Management Discharge Discharge Order Complete? Answers: Yes Patient to Obtain Answers: via Family Medications Transportation Arranged Answers: Family/Friends Faxed Final Orders Answers: Yes Notes: [facility] Family Notified Answers: Yes Discharge Comments Notes: Pt returning home to her family's care. [facility] has been notified that she is D/C ing today.They will continue to consider home health care. Date Signed: 04/10/2018 02:39 PM Electronically Signed By:Monica Velez
== END 2018-04-10 14:38 | disposition home or self-care (01) | DRG 292 ==
LOC: F2W 16:22
PROVIDERS: ADMIT Internal Medicine; ATTEND Internal Medicine
DX: I50.33 Acute on chronic diastolic (congestive) heart failure (principal); J96.11 Chronic respiratory failure with hypoxia; I48.2 Chronic atrial fibrillation; F03.90 Unspecified dementia, unspecified severity, without behavioral disturbance, psychotic disturbance, mood disturbance, and anxiety; Z79.01 Long term (current) use of anticoagulants; Z66 Do not resuscitate; Z86.718 Personal history of other venous thrombosis and embolism
CPT/HCPCS: 84484-PO; 92610-GN; 97110-GP; 97116-GP; 97162-GP; 97166-GO; 97535-GO; G8978-GP-CK; G8979-GP-CI; G8987-GO-CK; G8988-GO-CJ; G8996-GN-CK; G8997-GN-CK; G8998-GN-CK; J1650; J1940